=== PATIENT | female | born 1940 | race Caucasian/White ===

== ENCOUNTER 2017-11-22 15:05 | Inpatient (IN) | payer MEDICARE, OTHER ==
[~2017-11-22] VITALS: Ht 167.6 cm; Wt 59.6 kg
[~2017-11-22 15:05] MED LIST: ASCO10004 PO; ASPI-496 PO; ATOR10TA9 PO; CYAN1TAB29 PO; DICL75TA2 PO; ERGO2000 PO; MULT1CAP19 PO; OMEG1CAP6 PO; POLY17PO5 PO; THYR15TA PO; UBID10CA5 PO
[2017-11-22 16:00] LABS: BASOPHILS # (AUTO) 0.07 x10^3/uL (0-0.1); BASOPHILS % (AUTO) 1 % (0-1); EOSINOPHILS # (AUTO) 0.25 x10^3/uL (0-0.4); EOSINOPHILS % (AUTO) 3 % (1-7); LYMPHOCYTES # (AUTO) 1.75 x10^3/uL (1-3.4); LYMPHOCYTES % (AUTO) 20 % (22-44); MD NO; MEAN CORPUSCULAR HEMOGLOBIN 31.9 pg (27.0-34.8); MEAN CORPUSCULAR HGB CONC 33.4 g/dL (32.4-35.8); MEAN CORPUSCULAR VOLUME 95.4 fL (80-100); MEAN PLATELET VOLUME 8.7 fL (7.4-10.4); MONOCYTES # (AUTO) 0.56 x10^3/uL (0.2-0.8); MONOCYTES % (AUTO) 6 % (2-9); NEUTROPHILS # (AUTO) 6.21 x10^3/uL (1.8-6.8); NEUTROPHILS % (AUTO) 70 % (42-75); PLATELET COUNT 335 x10^3/uL (130-400); RED CELL DISTRIBUTION WIDTH 13.3 % (9.6-15.2)
[2017-11-22 16:07] LABS: ANION GAP 6 mmol/L (5-15); CALCIUM 8.7 mg/dL (8.5-10.1); CHLORIDE 108 mmol/L (98-107); CREATININE 0.71 mg/dL (0.55-1.02)
[2017-11-22 16:10] LABS: TROPONIN I < 0.015 ng/mL (0.000-0.045)
[2017-11-22] MEDS ORDERED: DONE10TA56 PO (16:44)
[2017-11-22 18:19] LABS: MICROSCOPIC AUTO
[2017-11-22 18:21] LABS: CULTURE INDICATED? YES
[2017-11-22] MEDS ORDERED: lexapro PO (19:22)
[2017-11-22] MEDS ORDERED: THYR60TA PO (19:22)
[2017-11-22] MEDS ORDERED: DONEPEZIL 10 MG TABLET PO SCH (21:00)
[2017-11-22] MEDS ORDERED: MECLIZINE CHEWABLE 25 MG TAB PO PRN (21:00)
[2017-11-22] MEDS ORDERED: BISACODYL 10 MG SUPP PR PRN (21:00)
[2017-11-22] MEDS ORDERED: ACETAMINOPHEN 325 MG TABLET PO PRN (21:00)
[2017-11-22] MEDS ORDERED: POLYETHYLENE GLYCOL 17 GM PACKET PO PRN (21:00)
[2017-11-22] MEDS ORDERED: ATORVASTATIN 10 MG TABLET PO SCH (21:00)
[2017-11-22] MEDS ORDERED: ONDANSETRON 2MG/ML, 2ML IVPush PRN (21:00)
[2017-11-22] MEDS: SODIUM CHLORIDE FLUSH 10ML SYR IVF SCH (21:08)
[2017-11-22] MEDS: DICLOFENAC SODIUM 75 MG TABLET.DR PO SCH (21:08)
[2017-11-22 23:29] VITALS: BP 127/66
[2017-11-22 23:41] VITALS: BP 127/66
[2017-11-23 03:10] VITALS: BP 111/72
[2017-11-23 04:59] LABS: BASOPHILS # (AUTO) 0.09 x10^3/uL (0-0.1); BASOPHILS % (AUTO) 1 % (0-1); EOSINOPHILS # (AUTO) 0.36 x10^3/uL (0-0.4); EOSINOPHILS % (AUTO) 6 % (1-7); LYMPHOCYTES # (AUTO) 1.65 x10^3/uL (1-3.4); LYMPHOCYTES % (AUTO) 25 % (22-44); MD NO; MEAN CORPUSCULAR HEMOGLOBIN 31.3 pg (27.0-34.8); MEAN CORPUSCULAR HGB CONC 33.4 g/dL (32.4-35.8); MEAN CORPUSCULAR VOLUME 93.7 fL (80-100); MEAN PLATELET VOLUME 8.8 fL (7.4-10.4); MONOCYTES # (AUTO) 0.59 x10^3/uL (0.2-0.8); MONOCYTES % (AUTO) 9 % (2-9); NEUTROPHILS # (AUTO) 3.89 x10^3/uL (1.8-6.8); NEUTROPHILS % (AUTO) 59 % (42-75); PLATELET COUNT 309 x10^3/uL (130-400); RED BLOOD COUNT 4.28 x10^6/uL (3.82-5.3); RED CELL DISTRIBUTION WIDTH 13.2 % (9.6-15.2)
[2017-11-23 05:10] LABS: ALBUMIN 3.2 g/dL (3.4-5.0); ANION GAP 6 mmol/L (5-15); CALCIUM 8.3 mg/dL (8.5-10.1); CHLORIDE 109 mmol/L (98-107)
[2017-11-23 05:14] LABS: ALANINE AMINOTRANSFERASE 20 U/L (12-78); ALKALINE PHOSPHATASE 69 U/L (45-117); BILIRUBIN,TOTAL 0.6 mg/dL (0.2-1.0); CREATININE 0.68 mg/dL (0.55-1.02); TOTAL PROTEIN 6.6 g/dL (6.4-8.2)
[2017-11-23] MEDS ORDERED: THYROID 30 MG TABLET PO SCH (06:00)
[2017-11-23 08:00] VITALS: BP 142/75
[2017-11-23] MEDS: DICLOFENAC SODIUM 75 MG TABLET.DR PO SCH ×2 (08:24→08:30)
[2017-11-23] MEDS: SODIUM CHLORIDE FLUSH 10ML SYR IVF SCH (08:30)
[2017-11-23 08:56] LABS: TROPONIN I < 0.015 ng/mL (0.000-0.045)
[2017-11-23] MEDS ORDERED: ASPIRIN 81 MG TABLET EC PO SCH (09:00)
[2017-11-23] MEDS ORDERED: CHOLECALCIFEROL 1,000 UNIT TABLET PO SCH (09:00)
[2017-11-23] MEDS ORDERED: SENNA/DOCUSATE TABLET PO SCH (09:00)
[2017-11-23] MEDS ORDERED: ASCORBIC ACID 500 MG TABLET PO SCH (09:00)
[2017-11-23] MEDS ORDERED: UBIDECARENONE 10 MG PO SCH (09:00)
[2017-11-23] MEDS ORDERED: CYANOCOBALAMIN 1,000 MCG TABLET PO SCH (09:00)
[2017-11-23] MEDS ORDERED: MULTIVITAMIN 1 TABLET PO SCH (09:00)
[2017-11-23 10:03] VITALS: BP 103/66
[2017-11-23 14:30] VITALS: BP 150/89
== END 2017-11-23 16:57 | disposition home or self-care (01) | DRG 149 ==
LOC: ED 17:01 → EDIP 20:39 → CCU 23:19 → 5SO 11-23 09:30 → DCLOUNGE 11-23 16:42
PROVIDERS: ADMIT Hospitalist; ATTEND Hospitalist
DX: R42 Dizziness and giddiness (principal); F03.90 Unspecified dementia, unspecified severity, without behavioral disturbance, psychotic disturbance, mood disturbance, and anxiety; I34.0 Nonrheumatic mitral (valve) insufficiency; E03.9 Hypothyroidism, unspecified; I35.1 Nonrheumatic aortic (valve) insufficiency; R00.1 Bradycardia, unspecified; E78.00 Pure hypercholesterolemia, unspecified; E78.5 Hyperlipidemia, unspecified; Z85.3 Personal history of malignant neoplasm of breast; Z92.21 Personal history of antineoplastic chemotherapy; Z88.0 Allergy status to penicillin; Z90.89 Acquired absence of other organs; Z82.49 Family history of ischemic heart disease and other diseases of the circulatory system
CPT/HCPCS: 36415; 70450; 80048; 80053; 81001; 84443; 84484; 85025; 87081; 87086; 93005; 93306; 93880; 99285